=== PATIENT | male | born 1950 | race Caucasian/White ===

== ENCOUNTER 2020-11-28 21:36 | Inpatient (IN) ==
[2020-11-29] MEDS ORDERED: NITROGLYCERIN SL 0.4 MG/TAB TAB SL PRN (03:20)
[2020-11-29] MEDS ORDERED: ONDANSETRON INJ 2 MG/ML 2 ML VIAL IV PRN (03:20)
[2020-11-29] MEDS ORDERED: ACETAMINOPHEN 325 MG TAB PO PRN ×2 (03:20→05:19)
[2020-11-29 04:04] LABS: Basophils # (auto) 0.02 K/uL (0-0.2); Basophils % (auto) 0.1 %; Hematocrit (blood only) 41.2 % (42-52); Hemoglobin 13.7 g/dL (14.0-18.0); Immature Granulocytes # (auto) 0.03 K/uL (0.00-0.02); Immature Granulocytes % (auto) 0.2 %; Lymphocytes % (auto) 7.1 %; Mean Corpuscular Hemoglobin 30.7 pg (25-34); Mean Corpuscular Volume 92.4 fL (80-100); Monocytes % (auto) 2.8 %; Neutrophils # (auto) 12.71 K/uL (1.4-6.5); Neutrophils % (auto) 89.8 %; Platelet Count 158 K/uL (130-400); RDW Coefficient of Variation 13.7 % (11.5-14.5); RDW Standard Deviation 46.4 fL (36.4-46.3); Red Blood Count 4.46 M/uL (4.7-6.1); White Blood Count 14.16 K/uL (4.8-10.8)
[2020-11-29 04:06] LABS: Mean Corpuscular Hgb Conc 33.3 g/dL (32-36)
[2020-11-29 04:22] LABS: Albumin Level 2.8 gm/dl (3.4-5.0); BUN Creatinine Ratio 18.8 (10-20); Calcium 8.3 mg/dl (8.5-10.1); Creatinine Clr Calc Pharmacy 88.5 ml/min; Est GFR (African American) 89.2 ml/min; Magnesium 2.6 mg/dl (1.8-2.4); Potassium 4.1 mmol/L (3.5-5.1)
[2020-11-29 04:27] LABS: Albumin Globulin Ratio 0.7 (0.9-2); Bilirubin,Total 0.5 mg/dl (0.2-1); Total Protein 6.8 gm/dl (6.4-8.2); Troponin I 0.022 ng/ml (0-0.045)
[2020-11-29] MEDS ORDERED: DOXYCYCLINE HYCLATE 100 MG in DEXTROSE 5% 100 ML IV STA (05:16)
--- NOTE | 2020-11-29 05:16 | History & Physical Report ---
Date of Service November 29, 2020 Assessment & Plan (1) Sepsis: Secondary to focal cellulitis, RLE ? Tickborne infection Troponin elevation secondary to sepsis Doubt ACS atrial flutter status post cardioversion, patient NSR hypertension, stable Abnormal LFTs, possible fatty liver disease prediabetes, hemoglobin A1c of 13 September 2020 New onset anemia, likely dilutional post IVF administration at [facility] ER, initial hemoglobin at ER within normal limits past tobacco abuse PCU Follow CS, Lyme screen done at [facility] ER Doxycycline for now Follow troponin TTE Re: Troponin elevation DVT prophylaxis per Lovenox subcu Full code Text document was generated using [employer] voice recognition software. It may contain grammatical or spelling errors. Kindly contact undersigned for clarification of any documentation item in question. Admission and Anticipated Discharge Date Admission Date: November 29, 2020 History of Present Illness Chief Complaint: Fever Primary Care Provider: Rebel Dash DO History obtained from patient and records. Medical history significant for atrial flutter status post cardioversion, hypertension, hyperlipidemia, prediabetes, past tobacco abuse. Patient visited family/friends at [place], [place] 3 days ago. Patient noted that his balance was kind of off. Patient veering to the right side with ambulation as per son. Patient denies headache. Later on, patient noted to be febrile with some shortness of breath. Patient denies cough symptoms, chest pain. Swelling noted on right posterior knee without recollection of trauma or known tick bites. Patient gives history of golfing, however. Patient evaluated at [facility] ER 2 nights ago. Noted to be febrile with temperature of 101. Blood cultures drawn, Lyme screen pending. Labs/imaging/work-up as follows : Hemoglobin 14, hematocrit 45, WBC 8.6, platelets 150 Serum sodium 136, potassium 4.5, chloride 102, CO2 25, BUN 25, creatinine 1.3, glucose 134 AST 58, ALT 56 Lactic acid 1.3 Troponin 0.16 later 0.21 COVID-19/flu testing was negative. CT chest: No PE, no pneumonia CT head: Minimal, nonspecific periventricular white matter hypoattenuation is present in bilateral frontal lobes likely related to chronic small vessel ischemic disease. No acute intracranial hemorrhage. CT angio head: No large vessel occlusion or intracranial aneurysm appreciated. No ischemia on EKG as per documentation. Patient given Vanco and Zosyn for possible pneumonia. Aspirin and Plavix, IV heparin started for possible NSTEMI. Patient stayed at the ER for 2 days due to lack of floor. Patient requested to be transferred to [facility] when ER provider recommended transfer to tertiary center for possible Cardiology evaluation for possible NSTEMI. Medical History as above Surgical History : Tonsillectomy Family History : Heart disease Personal/Social history : Past tobacco abuse, no EtOH intake, retired pharmacist Allergies Allergy/AdvReac Type Severity Reaction Status Date / Time No Known Allergies Allergy Verified 06/15/09 14:19 Home Medications Medication Instructions Recorded Confirmed Type Atenolol (Tenormin) 25 mg PO DAILY #0 06/15/09 11/29/20 History Aspirin Enteric Coated (Ecotrin Or 81 mg PO DAILY #0 tab 11/21/11 11/29/20 History Generic) MULTI/MINERAL 1 tab PO DAILY #0 11/21/11 11/29/20 History [place] 3 Fish Oil 1,000 PO BID 11/29/20 History Past Med/Surg History Social History Smoking Status: Unknown if ever smoked Hx Alcohol Use: No Hx Substance Use: No Preferred Language: Danish Communication Ability: Effective [employer] Required: No Beliefs That Will Affect Care: None Current Living Situation: Family Other Information That Helps Us Care for You: No Feels Safe at Home: Yes Safety Concerns: Feels Safe At This Time Assistive Devices: Glasses Review of Systems Review of Systems: As per HPI, all 10 systems reviewed, all other ROS negative Physical Exam Physical Exam: GENERAL: Comfortable, obese, pleasant, no respiratory distress SKIN: Normal color, warm HEENT: [place] palpebral conjunctivae, no ptosis, dry buccal mucosa NECK : Supple, short neck, no tenderness CHEST : CTA, no tenderness HEART : RRR, no obvious murmurs ABDOMEN: Some distention, nontender RECTAL : Intact sphincter, brown stool (FOBT negative) EXTREMITIES : Induration, right posterolateral knee, no overt tenderness, no other conspicuous deformities noted NEUROLOGIC : Coherent, no facial asymmetry, no other gross focality Results & Data Results & Data ([facility]) Vital Signs (Past 12 Hours) Vital Signs Temp Pulse Pulse Resp BP Pulse Ox 11/29/20 03:46 69 11/29/20 03:26 36.9 C 61 134/72 94 11/29/20 03:22 36.9 C 61 18 137/72 94 Laboratory Results Laboratory Results WBC 14.16 K/uL (4.8-10.8) H 11/29/20 03:58 RBC 4.46 M/uL (4.7-6.1) L 11/29/20 03:58 Hgb 13.7 g/dL (14.0-18.0) L 11/29/20 03:58 Hct 41.2 % (42-52) L 11/29/20 03:58 MCV 92.4 fL (80-100) 11/29/20 03:58 MCH 30.7 pg (25-34) 11/29/20 03:58 MCHC 33.3 g/dL (32-36) 11/29/20 03:58 RDW Std Deviation 46.4 fL (36.4-46.3) H 11/29/20 03:58 RDW Coeff of Timbo 13.7 % (11.5-14.5) 11/29/20 03:58 Plt Count 158 K/uL (130-400) 11/29/20 03:58 MPV 10.0 fL (7.4-10.4) 11/29/20 03:58 Immature Gran % (Auto) 0.2 % 11/29/20 03:58 Neut % (Auto) 89.8 % 11/29/20 03:58 Lymph % (Auto) 7.1 % 11/29/20 03:58 [place] % (Auto) 2.8 % 11/29/20 03:58 Eos % (Auto) 0.0 % 11/29/20 03:58 Baso % (Auto) 0.1 % 11/29/20 03:58 Neut # (Auto) 12.71 K/uL (1.4-6.5) H 11/29/20 03:58 Lymph # (Auto) 1.00 K/uL (1.2-3.4) L 11/29/20 03:58 [place] # (Auto) 0.40 K/uL (0.11-0.59) 11/29/20 03:58 Eos # (Auto) 0.00 K/uL (0-0.5) 11/29/20 03:58 Baso # (Auto) 0.02 K/uL (0-0.2) 11/29/20 03:58 Immature Gran # (Auto) 0.03 K/uL (0.00-0.02) H 11/29/20 03:58 Sodium 141 mmol/L (136-145) 11/29/20 03:58 Potassium 4.1 mmol/L (3.5-5.1) 11/29/20 03:58 Chloride 111 mmol/L (98-107) H 11/29/20 03:58 Carbon Dioxide 25 mmol/L (21-32) 11/29/20 03:58 Anion Gap 5.0 (3-11) 11/29/20 03:58 BUN 19 mg/dl (7-18) H 11/29/20 03:58 Creatinine 1.00 mg/dl (0.6-1.4) 11/29/20 03:58 Est Cr Clr Drug Dosing 88.5 ml/min 11/29/20 03:58 Est GFR ( Amer) 89.2 ml/min 11/29/20 03:58 Est GFR (Non-Af Amer) 77.0 ml/min 11/29/20 03:58 BUN/Creatinine Ratio 18.8 (10-20) 11/29/20 03:58 Glucose 158 mg/dl (70-99) H 11/29/20 03:58 Calcium 8.3 mg/dl (8.5-10.1) L 11/29/20 03:58 Magnesium 2.6 mg/dl (1.8-2.4) H 11/29/20 03:58 Total Bilirubin 0.5 mg/dl (0.2-1) 11/29/20 03:58 AST 47 U/L (15-37) H 11/29/20 03:58 ALT 75 U/L (12-78) 11/29/20 03:58 Alkaline Phosphatase 93 U/L (45-117) 11/29/20 03:58 Troponin I 0.022 ng/ml (0-0.045) 11/29/20 03:58 Total Protein 6.8 gm/dl (6.4-8.2) 11/29/20 03:58 Albumin 2.8 gm/dl (3.4-5.0) L 11/29/20 03:58 Globulin 4.0 gm/dl (2.5-4.0) 11/29/20 03:58 Albumin/Globulin Ratio 0.7 (0.9-2) L 11/29/20 03:58 Code Status & VTE Plan VTE Prophylaxis Plan VTE Prophylaxis will be ordered: Yes
[2020-11-29] MEDS ORDERED: PROMETHAZINE HCL 12.5 MG in SODIUM CHLORIDE 0.9% 50 ML IV PRN (05:18)
[2020-11-29] MEDS ORDERED: traMADol HCL 50 MG TABLET PO PRN (05:18)
[2020-11-29 08:50] LABS: Estimated Average Glucose 126 mg/dl
[2020-11-29] MEDS: ATENOLOL 25 MG TABLET PO SCH (09:16)
[2020-11-29] MEDS: ASPIRIN 81 MG ECTAB PO SCH (09:16)
[2020-11-29] MEDS: ENOXAPARIN INJ 40 MG/0.4 ML SYR SQ SCH (09:17)
--- NOTE | 2020-11-29 10:43 | XRay Report ---
XR chest 1V portable CLINICAL HISTORY: elevated troponin COMPARISON STUDY: June 2019 FINDINGS: The heart is the upper limits of normal in size. There is no overt failure. There are no pl eural effusions. There is mild basilar atelectasis.[ IMPRESSION: No active disease in the chest. ACT 112: Negative or not required by law. Electronically signed by: Estevan Santos M.D. 11/29/2020 10:41 AM
[2020-11-29 11:30] LABS: Lyme Ab IgG w/WB Rflx Negative (Negative)
[2020-11-29 11:39] LABS: Lyme Ab IgM w/WB Rflx Positive (Negative)
[2020-11-29] MEDS: cefTRIAXone SODIUM 2,000 MG in DEXTROSE 5% 50 ML IV SCH (11:55)
[2020-11-29] MEDS: CEROVITE ADV FORMULA TAB PO SCH (12:02)
--- NOTE | 2020-11-29 15:19 | Electrocardiogram Report ---
Test Reason : Blood Pressure : / mmHG Vent. Rate : 066 BPM Atrial Rate : 066 BPM P-R Int : 176 ms QRS Dur : 096 ms QT Int : 450 ms P-R-T Axes : 066 -11 013 degrees QTc Int : 471 ms Normal sinus rhythm Normal ECG When compared with ECG of 16-JUN-2009 00:09, No significant change was found Confirmed by Rubén Hernandez ([id number]) on 11/29/2020 3:19:21 PM Referred By: Sammy Pickering Confirmed By:Rubén Hernandez
[2020-11-29] MEDS: DOXYCYCLINE HYCLATE 100 MG CAP PO SCH (20:28)
[2020-11-30 05:44] LABS: Basophils # (auto) 0.03 K/uL (0-0.2); Basophils % (auto) 0.2 %; Eosinophils # (auto) 0.04 K/uL (0-0.5); Eosinophils % (auto) 0.3 %; Hematocrit (blood only) 42.5 % (42-52); Hemoglobin 14.1 g/dL (14.0-18.0); Immature Granulocytes # (auto) 0.07 K/uL (0.00-0.02); Immature Granulocytes % (auto) 0.5 %; Lymphocytes # (auto) 2.28 K/uL (1.2-3.4); Lymphocytes % (auto) 15.4 %; Mean Corpuscular Hemoglobin 30.3 pg (25-34); Mean Corpuscular Hgb Conc 33.2 g/dL (32-36); Mean Corpuscular Volume 91.2 fL (80-100); Mean Platelet Volume 10.4 fL (7.4-10.4); Monocytes # (auto) 0.94 K/uL (0.11-0.59); Monocytes % (auto) 6.4 %; Neutrophils % (auto) 77.2 %; Platelet Count 165 K/uL (130-400); RDW Standard Deviation 46.5 fL (36.4-46.3); Red Blood Count 4.66 M/uL (4.7-6.1); White Blood Count 14.76 K/uL (4.8-10.8)
[2020-11-30 06:17] LABS: Albumin Level 2.8 gm/dl (3.4-5.0); BUN Creatinine Ratio 24.7 (10-20); Calcium 8.2 mg/dl (8.5-10.1); Creatinine Clr Calc Pharmacy 90.3 ml/min; Est GFR (African American) 91.4 ml/min; Est GFR (Non-African American) 78.9 ml/min; Magnesium 2.2 mg/dl (1.8-2.4); Potassium 4.3 mmol/L (3.5-5.1)
[2020-11-30 06:19] LABS: Albumin Globulin Ratio 0.7 (0.9-2); Bilirubin,Total 0.4 mg/dl (0.2-1); Globulin 3.9 gm/dl (2.5-4.0); Total Protein 6.7 gm/dl (6.4-8.2)
[2020-11-30] MEDS ORDERED: SODIUM CHLORIDE 0.9% 1000ML 1,000 ML IV SCH (07:35)
[2020-11-30] MEDS: ENOXAPARIN INJ 40 MG/0.4 ML SYR SQ SCH (09:35)
[2020-11-30] MEDS: DOXYCYCLINE HYCLATE 100 MG CAP PO SCH (09:36)
[2020-11-30] MEDS: ASPIRIN 81 MG ECTAB PO SCH (09:36)
[2020-11-30] MEDS: ATENOLOL 25 MG TABLET PO SCH (09:36)
[2020-11-30] MEDS: cefTRIAXone SODIUM 2,000 MG in DEXTROSE 5% 50 ML IV SCH (09:37)
--- NOTE | 2020-11-30 12:12 | Discharge Summary ---
Date of Service November 30, 2020 Admission HPI Per Admitting Provider History obtained from patient and records. Medical history significant for atrial flutter status post cardioversion, hypertension, hyperlipidemia, prediabetes, past tobacco abuse. Patient visited family/friends at [place], [place] 3 days ago. Patient noted that his balance was kind of off. Patient veering to the right side with ambulation as per son. Patient denies headache. Later on, patient noted to be febrile with some shortness of breath. Patient denies cough symptoms, chest pain. Swelling noted on right posterior knee without recollection of trauma or known tick bites. Patient gives history of golfing, however. Patient evaluated at [facility] ER 2 nights ago. Noted to be febrile with temperature of 101. Blood cultures drawn, Lyme screen pending. Labs/imaging/work-up as follows : Hemoglobin 14, hematocrit 45, WBC 8.6, platelets 150 Serum sodium 136, potassium 4.5, chloride 102, CO2 25, BUN 25, creatinine 1.3, glucose 134 AST 58, ALT 56 Lactic acid 1.3 Troponin 0.16 later 0.21 COVID-19/flu testing was negative. CT chest: No PE, no pneumonia CT head: Minimal, nonspecific periventricular white matter hypoattenuation is present in bilateral frontal lobes likely related to chronic small vessel ischemic disease. No acute intracranial hemorrhage. CT angio head: No large vessel occlusion or intracranial aneurysm appreciated. No ischemia on EKG as per documentation. Patient given Vanco and Zosyn for possible pneumonia. Aspirin and Plavix, IV heparin started for possible NSTEMI. Patient stayed at the ER for 2 days due to lack of floor. Patient requested to be transferred to [facility] when ER provider recommended transfer to tertiary center for possible Cardiology evaluation for possible NSTEMI. Medical History as above Surgical History : Tonsillectomy Family History : Heart disease Personal/Social history : Past tobacco abuse, no EtOH intake, retired pharmacist Admission Exam Per Admitting Provider GENERAL: Comfortable, obese, pleasant, no respiratory distress SKIN: Normal color, warm HEENT: [place] palpebral conjunctivae, no ptosis, dry buccal mucosa NECK : Supple, short neck, no tenderness CHEST : CTA, no tenderness HEART : RRR, no obvious murmurs ABDOMEN: Some distention, nontender RECTAL : Intact sphincter, brown stool (FOBT negative) EXTREMITIES : Induration, right posterolateral knee, no overt tenderness, no other conspicuous deformities noted NEUROLOGIC : Coherent, no facial asymmetry, no other gross focality Principal Diagnosis Lyme Discharge Exam ROS-No Headache, No Visual Changes, No Nausea, No Vomiting, No Fever, No Chills, No Neck Pain or Stiffness, No Chest Pain, No Palpitations, No SOB, No ALLAN, No Cough, No Sputum, No Wheezing, No Abdominal Pain, No Diarrhea, No Hematemesis, No Hemoptysis, No Unexpected Weight Loss, No Flank pain, No Melena, No Hematochezia, No Frequency, No Urgency, No Burning, No Hematuria, No Rashes, No Diaphoresis. Appetite is Normal Physical Exam Gen-AAO x 3, NAD, Afebrile Head-NCAT, EOMI, PERRLA, Anicteric Sclera, No Posterior Pharyngeal Erythema Neck-Supple, No JVD, No Thyromegaly, No Masses, No LAD, No Bruits Lungs-Clear to Auscultation Bilaterally, No Rales, No Rhonchi, No Wheezing, No Crepitus Chest-No S4, +S1, +S2, No S3, No Murmurs, No Rubs, No Gallops, No Ectopy Abdomen-Soft, Bowel Sounds Present, Non Tender, Non Distended, No Hepatomegaly, No Splenomegaly, No Palpable Masses, No Rebound, No Rigidity, No Guarding Musculoskeletal-Full Range of Motion Bilaterally, No CVAT Extremities-No Cyanosis, No Clubbing, No Edema Nuero-Cranial Nerves II-XII grossly intact, Motor WNL, DTRs WNL, Strength WNL, Non Focal Psych-Normal Mood Discharge Data Allergies Allergy/AdvReac Type Severity Reaction Status Date / Time No Known Allergies Allergy Verified 06/15/09 14:19 Ordered Studies Current Diagnoses Sepsis, unspecified organism (11/29/20) Allergies No Known Allergies Allergy (Verified 06/15/09 14:19) Height/Weight/Isolation Height 5 ft 10 in Weight 111.7 kg Chemistry 11/29/20 11/30/20 03:58 05:22 Sodium 141 141 Potassium 4.1 4.3 Chloride 111 H 110 H Carbon Dioxide 25 27 Anion Gap 5.0 4.0 BUN 19 H 24 H Creatinine 1.00 0.98 Glucose 158 H 94 Hospital Course (1) Sepsis: Sepsis not present, Patient +Acute Lyme atrial flutter status post cardioversion, patient NSR hypertension, stable Abnormal LFTs, possible fatty liver disease prediabetes, hemoglobin A1c of 13 September 2020 New onset anemia, likely dilutional post IVF administration at [facility] [address] [facility] ER, initial hemoglobin at ER within normal limits past tobacco abuse DC on Doxy x 10 days Total Time Total Time Spent Total Time Spent (In Minutes): 45 min Total Time Includes: Examination of the Patient, Discharge Planning, Medication Reconciliation and Communication With Other Providers Discharge Plan Discharge Items Patient Disposition: Home - Self-Care Reason For Visit: ELEVATED TROPONIN/SEPSIS Discharge Diagnosis: Lyme Activity: Resume your previous activity Lifting: Gradually increase as tolerated Bathing: No limitations Sexual Activity: When tolerated Exercise/Sports: Gradually increase as tolerated Driving/Machine Use: No limitations Weightbearing: Full weightbearing Non-emergency contact: Primary Care Provider Call non-emergency contact if: you have any medication questions Follow-up/Referrals: Rebel Dash, [Primary Care Provider] - (Date & Time 12/07/2020 9:20 AM Provider Cal Torrez PA-C Department General Internal Medicine [facility] ) Diet: Carb Consistent or DM2 and Heart Healthy Addtl Attending Provider Instructions: none Pending Studies at Discharge: No Stand-Alone Forms: My [facility] [place], Smoking Cessation Medications and DC Order Prescriptions: New doxycycline monohydrate 100 mg capsule 100 mg PO BID 10 Days Qty: 20 RF: 0 No Action Atenolol (Tenormin) 25 MG tablet 25 mg PO DAILY Qty: 0 RF: 0 Aspirin Enteric Coated (Ecotrin Or Generic) 81 MG tablet 81 mg PO DAILY Qty: 0 RF: 0 MULTI/MINERAL 1 tab PO DAILY Qty: 0 RF: 0 [place] 3 Fish Oil 1,000 mg capsule 1,000 PO BID RF: 0 Discharge Orders: Discharge Order (Routine); Ordered 11/30/20 Ordered By: William Cuevas/Other Patient Handouts: Exercise for a Healthier Heart, 5 Steps for Eating Healthier, A1C Admission Data Admit Date/Time: 11/29/20 04:10 Attending Provider: William Sotomayor Admit Provider: Sammy Pickering Primary Care Provider: Rebel Dash
[2020-11-30] MEDS: CEROVITE ADV FORMULA TAB PO SCH (13:17)
[2020-12-01 06:21] LABS: 18KDIGG Band NON-REACTIVE; 23KDIGG Band NON-REACTIVE; 23KDIGM Band REACTIVE; 28KDIGG Band NON-REACTIVE; 30KDIGG Band NON-REACTIVE; 39KDIGG Band NON-REACTIVE; 39KDIGM Band NON-REACTIVE; 41KDIGG Band REACTIVE; 41KDIGM Band NON-REACTIVE; 45KDIGG Band NON-REACTIVE; 58KDIGG Band NON-REACTIVE; 66KDIGG Band NON-REACTIVE; 93KDIGG Band NON-REACTIVE; Lyme Antibodies, WB IgG NEGATIVE (NEGATIVE); Lyme Antibodies, WB IgM NEGATIVE (NEGATIVE)
== END 2020-11-30 14:22 | disposition home or self-care (01) | DRG 872 ==
LOC: 2S 11-29 03:02 → SUATTDRO 11-29 03:02